=== PATIENT | male | born 1990 | race Asian ===

== ENCOUNTER 2020-02-24 18:47 | Emergency (ER) | payer MEDICAID ==
[~2020-02-24] VITALS: Ht 165.1 cm; Wt 74.8 kg
[2020-02-24 18:54] VITALS: BP_SYST 135
[2020-02-24] MEDS ORDERED: DIPHENHYDRAMINE INJ 50 MG/ML VIAL IVP ONE (19:15)
[2020-02-24] MEDS ORDERED: methylPREDNISolone SOD SUCC/PF 62.5 MG/ML VIAL IVP ONE (19:15)
[2020-02-24] MEDS ORDERED: NACL 0.9% 1,000 ML IV ONE (20:00)
[2020-02-24 21:48] VITALS: BP_SYST 127
== END 2020-02-24 21:48 | disposition home or self-care (01) ==
LOC: SED 18:47
DX: T78.1XXA Other adverse food reactions, not elsewhere classified, initial encounter (principal); X58.XXXA Exposure to other specified factors, initial encounter
CPT/HCPCS: 96374; 96375; 99284; J1200; J2930; J7030